=== PATIENT | female | born 1960 | race Caucasian/White ===

== ENCOUNTER 2019-05-28 08:54 | Emergency (ER) | payer MEDICAID, OTHER ==
[~2019-05-28] VITALS: Ht 152.4 cm; Wt 78.2 kg
[~2019-05-28 08:54] MED LIST: IBUP-1561 PO
[2019-05-28 09:01] VITALS: BP 135/79; PULSE 77; RESP 16; Ht 152.4 cm; Wt 78.2 kg
--- NOTE | 2019-05-28 09:44 | ERD ---
ER Documentation Chief Complaint Chief Complaint RIGHT LEG PAIN X3 DAYS HPI Patient is a 59 years old female past medical history of diabetes representing to the ED for right knee pain and right calf x since 8 days ago. Patient reports going to the ED 8 days ago and received an injection that resolved her pain. Patient is concerned as pain came back. Patient reports that she has an appointment with her PCP in 3 months. Patient denies fever, chills, night sweats, shortness of breath, difficulty breathing. Patient denies any trauma or injuries. She reports pain is worsened with walking that improves with rest. Describes her pain starting around the right knee area that slowly radiates to her calf. Patient admits that she was diagnosed with Arthritis by her PCP and was given Tylenol. Patient was instructed by her PCP to seek ED/urgent care should pain worsen. ROS All systems reviewed and are negative except as per history of present illness. Medications Home Meds Active Scripts Ibuprofen* (Motrin*) 400 Mg Tab, 400 MG PO Q8, #30 TAB Prov:WINSOME GOLDEN PA-C 05/28/19 Allergies Allergies: Coded Allergies: No Known Allergy (Verified Allergy, Unknown, 03/08/08) PMhx/Soc History of Surgery: No Anesthesia Reaction: No Hx Neurological Disorder: No Hx Respiratory Disorders: No Hx Cardiac Disorders: No Hx Psychiatric Problems: No Hx Miscellaneous Medical Probl: No Hx Alcohol Use: No Hx Substance Use: No Hx Tobacco Use: No FmHx Family History: No diabetes, No coronary disease, No other Physical Exam Vitals Vital Signs Date Temp Pulse Resp B/P (MAP) Pulse Ox O2 O2 Flow FiO2 Time Delivery Rate 05/28/19 98.1 77 16 135/79 98 09:01 (97) Physical Exam Const: No acute distress Head: Atraumatic Resp: Clear to auscultation bilaterally Cardio: Regular rate and rhythm, no murmurs Ext: No cyanosis, or edema Neur: Awake and alert Psych: Normal Mood and Affect Right Knee Exam: No tenderness to palpation, no crepitus, no swelling, no erythema, negative De Leon sign, negative calf tenderness, negative calf edema. Results 24 hrs Current Medications Medications Dose Sig/Ember Start Time Status Last (Trade) Ordered Route PRN Stop Time Admin Dose Reason Admin Ketorolac 30 mg ONCE STAT 05/28/19 DC 05/28/19 Tromethamine IM 09:46 05/28/19 09:52 (Toradol) 09:47 125 mg ONCE ONCE 05/28/19 DC 05/28/19 Methylprednis IM 10:00 05/28/19 09:52 olone Sodium 10:01 Succinate (Solu-Medrol) Procedures/MDM Patient was seen and evaluated for right knee pain. Patient is most likely ex periencing worsening arthritis due to excessive movements. Low suspicion for septic arthritis, fracture, DVT. She was given Toradol 30 mg IM and Solu-Medrol 125 IM in ED with significant improvement of symptoms. Patient will be discharged with ibuprofen 400 mg and was instructed to take it along with Tylenol 500 mg as prescribed by her PCP. Patient was advised to follow-up with her PCP soon as possible. Patient stable and ready for discharge.. Departure Diagnosis: Primary Impression: Right knee pain Chronicity: acute Qualified Codes: M25.561 - Pain in right knee Condition: Stable Patient Instructions: What Is Arthritis? Referrals: [facility] Additional Instructions: Paciente aconseja volver a Departamento de urgencias inmediatamente para sntomas nuevos o que empeoran . Paciente aconseja posteriores con el PCP en 2-3 bobo . Paciente verbaliza la comprehensin y est de acuerdo con el tratamiento y el curso de accin. Si el paciente no tiene ninguna de atencin primaria pueden seguir con [facility] [place] [address] [place] [address] o [facility] + [address] [address] WINSOME GOLDEN PA-C May 28, 2019 09:44
[2019-05-28] MEDS ORDERED: KETOROLAC 30 MG INJ IM STA (09:46)
[2019-05-28] MEDS ORDERED: METHYLPREDNISOLONE 125 MG INJ IM ONE (10:00)
== END 2019-05-28 10:05 | disposition home or self-care (01) ==
LOC: FTE 08:54
DX: M25.561 Pain in right knee (principal); E11.9 Type 2 diabetes mellitus without complications
CPT/HCPCS: 96372; J1885; J2930; Z7502